=== PATIENT | male | born 1985 | race Two or more races ===

== ENCOUNTER 2021-08-17 11:09 | Emergency (ER) | payer MEDICAID ==
[~2021-08-17] VITALS: Ht 175.3 cm; Wt 73.0 kg
[2021-08-17] MEDS ORDERED: SULF1TAB48 PO (13:17)
[2021-08-17] MEDS ORDERED: TRIA15CR61 TP (13:17)
[2021-08-17] MEDS ORDERED: NAPR-681 PO (13:21)
[2021-08-17 13:48] VITALS: BP 126/73
== END 2021-08-17 14:00 | disposition home or self-care (01) ==
LOC: ER 11:09
DX: L30.8 Other specified dermatitis (principal); L01.00 Impetigo, unspecified
CPT/HCPCS: 99283